=== PATIENT | male | born 1980 | race Caucasian/White ===

== ENCOUNTER 2018-05-23 09:00 | Outpatient (CLI) | payer OTHER ==
--- NOTE | 2018-05-23 12:15 | Diagnostic Imaging Report ---
Indications: Chronic sinus drainage Technique: Spiral images obtained through the maxillofacial sinuses. No IV contrast utilized. Multiplanar reconstructions were generated.Total dose length product 556 mGycm. CTDIvol(s) 28 mGy. Dose reduction achieved using automated exposure control Comparison: 05/29/2013 Findings: The right maxillary sinus demonstrates minimal mucosal thickening inferiorly. This is slightly decreased from the previous study. Mucosal thickening is again demonstrated within the sphenoid sinuses, minimal. There is minimal mucosal thickening in the inferior left maxillary sinus. The sphenoid and frontal sinuses are clear. The maxillary ostia are patent. The nasal septum is deviated to the left. Included intracranial structures are unremarkable. The orbits are unremarkable. The facial soft tissues are unremarkable. Nonspecific calcifications are seen in the left tonsillar pillar. Intact dentition. Impression: Minimal sinus disease, as described. This is slightly improved from prior study of 2013 Patent maxillary ostia Leftward nasal septal deviation The CT scanner at [facility] is accredited by the [employer] and the scans are performed using protocols designed to limit radiation exposure to as low as reasonably achievable to attain images of sufficient resolution adequate for diagnostic evaluation.
== END 2018-05-23 11:00 | disposition home or self-care (01) ==
LOC: CAT 09:00
DX: J32.0 Chronic maxillary sinusitis (principal); J34.2 Deviated nasal septum
CPT/HCPCS: 70486